=== PATIENT | male | born 1975 | race Caucasian/White ===

== ENCOUNTER 2017-03-09 10:28 | Emergency (ER) | payer OTHER ==
[~2017-03-09] VITALS: Ht 185.4 cm; Wt 83.0 kg
[2017-03-09 10:38] VITALS: BP 146/98; PULSE 73; RESP 16; TEMP 98.5; O2SAT 100
[2017-03-09] MEDS ORDERED: ADDE30TA PO (10:56)
[2017-03-09] MEDS ORDERED: BUPR100T4 PO (10:56)
[2017-03-09] MEDS ORDERED: OXYC30TA PO (10:56)
[2017-03-09 11:08] LABS: BLOOD, URINE SMALL (NEG); GLUCOSE,URINE NEG (NEG); KETONE, URINE NEG (NEG); NITRITE,URINE NEG (NEG); PH, URINE 5.5 (5.0-8.5)
[2017-03-09 11:18] LABS: METHOD OF COLLECTION CLEAN CATCH; URINE COLOR YELLOW (YELLW/STRAW)
[2017-03-09 11:19] LABS: COMMENT (UR) CULT NOT INDICATED; CULTURE IF INDICATED CULT NOT INDICATED; RBC, URINE 15-19 /hpf (0-3); SQUAMOUS EPITHELIAL CELL URINE 0-5 /hpf (0-5)
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
[2017-03-09 11:44] VITALS: BP 143/91; PULSE 76; RESP 16; O2SAT 100
--- NOTE | 2017-03-09 11:51 | RADHPO ---
EXAM DATE/TIME: 03/09/2017 11:19 [place] COMPARISON: No previous studies available for comparison. INDICATIONS : Right flank pain x 3 days. ORAL CONTRAST: No oral contrast ingested. RADIATION DOSE: 12.92 CTDIvol (mGy) MEDICAL HISTORY : Renal calculi. SURGICAL HISTORY : Lithotripsy. ENCOUNTER: Initial ACUITY: 3 days PAIN SCALE: 10/10 LOCATION: Right flank TECHNIQUE: Volumetric scanning of the abdomen and pelvis was performed. Using automated exposure control and ad justment of the mA and/or kV according to patient size, radiation dose was kept as low as reasonably achievable to obtain optimal diagnostic quality images. FINDINGS: Lung bases are clear. Liver, spleen, pancreas and adrenals. RIGHT KIDNEY: There are numerous small 2-3 mm stones in the right kidney with a prominent right ureter and minimal perinephric stranding extending down to the middle third of the right ureter where there is a 4 mm ob structing stone. Similar multiple small stones are present in the left. The largest stone on the left measures 6 mm. There is no perinephric stranding. The pelvic contents are unremarkable. Review of bone windows reveals only mild degenerative changes in the lower lumbar spine. CONCLUSION: A 4 mm partially obstructing stone middle third right ureter. Jonh Long MD FACR on March 09, 2017 at 11:36 Board Certified Radiologist. This report was verified electronically.
[2017-03-09 12:50] VITALS: BP 140/84; PULSE 80; RESP 16; O2SAT 100
== END 2017-03-09 12:51 | disposition home or self-care (01) ==
LOC: PHED 10:28
DX: N20.1 Calculus of ureter (principal); N13.9 Obstructive and reflux uropathy, unspecified; M54.5 Low back pain; F90.9 Attention-deficit hyperactivity disorder, unspecified type
CPT/HCPCS: 74176; 81001

== ENCOUNTER → 2017-06-18 | Day surgery (SDC) | payer OTHER ==
[~2017-06-18] MED LIST: ACETAMINOPHEN/HYDROcodone 325 MG/5 MG TAB ONE; ADDE30TA PO; BUPIVACAINE/EPINEPHRINE 0.25% PF 30 ML VIAL INFIL ONE; BUPR100T4 PO; KETOROLAC TROMETHAMINE 30 MG/ML (IVP) VIAL IV PUSH ONE; LACTATED RINGER'S 1000 ML INJ 1,000 ML ONE; LIDOCAINE 1%/EPINEPHrine 1:200,000 PF SOLN 30 ML VIAL ONE; MIDAZOLAM HCL 2 MG/2 ML VIAL ONE; NEOMYCIN/POLYMYXIN/BACITRACIN OINT 15 GM TUBE ONE; ONDANSETRON HCL 4 MG/2 ML VIAL IV PUSH ONE; OXYC30TA PO; PROPOFOL 200 MG/20 ML AMP IV ONE
--- NOTE | 2017-06-18 10:56 | TN ---
cc: SILVIA ORTIZ M.D. DATE OF SURGERY: 06/18/2017 PREOPERATIVE DIAGNOSES Basal cell carcinoma x5 on the torso. POSTOPERATIVE DIAGNOSES Basal cell carcinoma x5 on the torso. PROCEDURES Wide local excision multiple basal cell carcinomas of the torso, number one left anterior shoulder 1 x 3 cm, number two left lateral chest wall 1.5 x 4 cm, left medial chest wall 2 x 4 cm, right nipple-areolar complex 1-1/2 x 3 cm, right lateral chest wall 2-1/2 x 5 cm. The sizes are excision sizes and all areas were closed in two layers. SURGEON Dr. Silvia Ortiz. WANIGAN CLERK Bushra Juarez, MS3 ANESTHESIA General. INDICATIONS A pleasant 42-year-old gentleman who has very fair skin, was found to have multiple basal cell carcinomas. Biopsies demonstrated peripheral and positive deep margins. Plans were made for wide excisions. INTRAOPERATIVE FINDINGS Specimens sent with short stitch 12 o'clock, long stitch 3 o'clock. Specimen was sent separately and marked by their location. Estimated blood loss less than 25 mL. DESCRIPTION OF PROCEDURE IN DETAIL The patient was identified as Michael Torres, taken to the operating room and placed in the supine position after the five areas of concern were marked with the patient's direction in the holding area. The patient underwent adequate general anesthesia with a laryngeal mask. The patient's ___ which had been marked were marked with a marking pen for proposed elliptical incisions in the length and width measurements as given above. A time-out procedure was performed. Following completion of time-out procedure to everyone's satisfaction within the room, the areas were anesthetized with local anesthetic. Attention was turned first to left anterior shoulder. Elliptical incision was carried out with scalpel and hemostasis controlled with electrocautery. Specimen was removed in its entirety using a scalpel and marked with Silk suture. Once the wound was assured to be dry it was closed in two layers with 3-0 Vicryl and 4-0 Nylon. Attention was then turned to the left lateral chest wall. An elliptical incision which had been infiltrated with local anesthetic was carried out with scalpel and hemostasis was controlled with electrocautery. The specimen was removed in its entirety using scalpel. It was marked with Silk suture and sent to pathology. The wound was made hemostatic with electrocautery and closed in two layers with 3-0 Vicryl and 4-0 Monocryl. Attention was then turned to the left medial chest wall lesion. Previously proposed elliptical incision which had been infiltrated with local anesthetic was carried out with scalpel and hemostasis controlled with electrocautery. Specimen was removed in its entirety using a scalpel and passed off the field for pathologic evaluation after marking with Silk suture. The wound was closed in two layers with 3-0 Vicryl and 4-0 Monocryl. Attention was then turned to the right nipple-areolar complex. Proposed incision which had been infiltrated with local anesthetic was carried out with scalpel and hemostasis controlled with electrocautery. Specimen was removed in its entirety using a scalpel. The wound was made hemostatic and closed in two layers with 3-0 Vicryl and 4-0 Monocryl. Attention was then turned to the right lower chest wall lesion. Previously made incision which had been infiltrated with local anesthetic was carried out with scalpel and hemostasis controlled with electrocautery. The specimen was removed in its entirety using scalpel. The specimen was marked and passed off the field for pathologic evaluation. The wound was made hemostatic and closed in layers with 3-0 Vicryl and 4-0 Monocryl. Dressings were applied, Mastisol, half-inch brown Steri-Strips, at the Nylon suture site left anterior shoulder antibiotic ointment was placed. Dry sterile dressings, occlusive dressings were placed in all five locations. The patient tolerated the procedure without apparent complication. Sponge, needle and instrument counts were correct at the end of the case. MD VALERIO Nagel/RENEE /10:24 AM /10:34 AM
== END | disposition home or self-care (01) ==
LOC: ESDC 08:12
PROVIDERS: ATTEND Surgery Trauma Surgery
DX: C44.519 Basal cell carcinoma of skin of other part of trunk (principal); C44.619 Basal cell carcinoma of skin of left upper limb, including shoulder
CPT/HCPCS: 00400; 11603; 11604; 11606; 12035; 88305; J1885; J2250; J2405; J3010; J7120